=== PATIENT | male | born 1985 | race African-American/Black ===

== ENCOUNTER 2022-10-29 21:01 | Emergency (ER) | payer SELFPAY ==
[~2022-10-29] VITALS: Ht 182.9 cm; Wt 95.0 kg
[2022-10-29 21:09] VITALS: TEMP 98.2; O2SAT 98
[2022-10-29] MEDS ORDERED: KETOROLAC 60MG/2ML VIAL IM ONE (22:30)
[2022-10-29 23:21] VITALS: BP 140/83; PULSE 115; RESP 20
== END 2022-10-30 00:28 | disposition home or self-care (01) ==
LOC: ER 21:10
DX: M79.652 Pain in left thigh (principal); F41.0 Panic disorder [episodic paroxysmal anxiety]
CPT/HCPCS: 73552; 96372; 99283; J1885; Z7610